=== PATIENT | male | born 1945 | race Caucasian/White ===

== ENCOUNTER → 2020-04-07 08:24 | Outpatient (REF) | payer OTHER, SELFPAY ==
--- NOTE | 2020-04-07 | NM_ITS ---
Lexiscan Myocardial perfusion study Indication: Chest pain, shortness of breath, assess for coronary disease and ischemia Technique: The patient was brought in for a Lexiscan perfusion study on 04/07/2020 and was injected 0.4 mg of Lexiscan intravenously. Within a minute of this injection 30 mCi of sestamibi was given intravenously. Images were obtained using the SPECT gamma camera interlaced with the gating device. Images were obtained in supine position. Resting perfusion study was performed on 04/08/2020. Patient was administered 30 mCi of sestamibi intravenously at rest. Images were then obtained in supine position. Total DLP 77mGy-cm. Images were processed with the software and compared side to side in short axis, horizontal long axis and vertical long axis views. Findings: Raw acquisition was reviewed. The stress perfusion study showed diminished tracer uptake along the basal to mid inferior wall. There is improved uptake with CT attenuation correction suggestive of component of diaphragmatic attenuation artifact. The gated study shows normal LV systolic function with calculated LVEF of > 70%. LV cavity is normal in size. The gated study shows diminished contractility in the basal inferior wall. Resting study shows diminished tracer uptake along the basal to mid inferior wall similar to the stress acquisition. Gating at rest reveals ejection fraction at > 70%. The findings are consistent with fixed perfusion defect along the basal to mid inferior wall. No reversible defects. Improvement with attenuation correction could suggest component of diaphragmatic artifact. Impression: 1. Myocardial perfusion imaging study shows fixed basal to mid inferior defect. This could reflect a prior infarct. However, there is also improvement with CT attenuation correction and hence could also be components of diaphragmatic artifact. 2. Gated LVEF is > 70% during stress and rest. 3. Transient ischemic dilatation not present. EKG component of the test reported separately.
--- NOTE | 2020-04-07 08:30 | CA_ITS ---
Acquisition Time: 2020-04-07 08:48:43 Total Exercise Time: 00:02:00 Test Indications: Dyspnea Medications: HCTZ LISINOPRIL METOPROLOL OMEPRAZOLE SIMVASTATIN TAMSULOSIN Protocol: LEXISCAN Max HR: 106 BPM 71% of Pred: 148 BPM Max BP: 122/076 mmHG Max Work Load: 1.6 METS Pharmacological stress test using Lexiscan while walking on the treadmill for 2 minutes. Pt tolerated well, denies any anginal sx. EKG with occasional PVC's pt asymptomatic. Non-diagnostic for ischemia. Nuclear images to follow. Normotensive response to test. Test reviewed with Dr. Delarosa Referred By: Pearl Azar Overread By: Caroline Benavides
== END ==
LOC: HO.CARD 08:24
PROVIDERS: PCP Internal Medicine; Visit Provider Internal Medicine
DX: I10 Essential (primary) hypertension (principal); I25.10 Atherosclerotic heart disease of native coronary artery without angina pectoris
CPT/HCPCS: 78452; 93017; A9500; J0280; J2785